=== PATIENT | female | born 1970 | race Caucasian/White ===

== ENCOUNTER 2019-03-08 12:22 | Emergency (ER) | payer OTHER ==
[~2019-03-08] VITALS: Wt 86.0 kg
[2019-03-08 12:25] VITALS: BP 140/75; PULSE 79; RESP 18
[2019-03-08] MEDS ORDERED: ONDANSETRON (ODT) 4 MG TAB ODT STA (12:58)
[2019-03-08] MEDS ORDERED: MECLIZINE 12.5 MG TAB PO ONE (13:00)
[2019-03-08] MEDS ORDERED: MECL-77 PO (13:47)
[2019-03-08] MEDS ORDERED: ONDA8TAB14 PO (13:47)
--- NOTE | 2019-03-08 13:50 | ERD ---
ER Documentation Chief Complaint Chief Complaint nausea and vomiting and intermittent dizziness for the past few days. [place] HPI 48-year-old female presents with nausea and dizziness for the last 3 days. She has recent URIs. Denies chest pain, shortness breath, deficits, visual changes. She has nausea but no vomiting. She denies urinary complaints. History of hypertension and takes medication. ROS All systems reviewed and are negative except as per history of present illness. Medications Home Meds Active Scripts Ondansetron (Ondansetron Odt) 8 Mg Tab.rapdis, 8 MG PO Q6H PRN for NAUSEA AND/OR VOMITING, #6 TAB Prov:LISSETT HAWKINS MD 03/08/19 Meclizine Hcl* (Meclizine Hcl*) 25 Mg Tablet, 25 MG PO Q8H PRN for DIZZINESS, #15 TAB Prov:LISSETT HAWKINS MD 03/08/19 Allergies Allergies: Coded Allergies: No Known Allergy (Unverified , 03/08/19) PMhx/Soc Medical and Surgical Hx: pt denies Surgical Hx History of Surgery: No Anesthesia Reaction: No Hx Cardiac Disorders: Yes (HTN) Hx Alcohol Use: No Hx Substance Use: No Hx Tobacco Use: No Smoking Status: Never smoker FmHx Family History: No diabetes, No coronary disease, No other Physical Exam Vitals Vital Signs Date Temp Pulse Resp B/P (MAP) Pulse Ox O2 O2 Flow FiO2 Time Delivery Rate 03/08/19 98.7 79 18 140/75 98 12:25 (96) Physical Exam Const: No acute distress Head: Atraumatic Eyes: Normal Conjunctiva. Eyes Meenakshi. Negative cover uncover test. No nystagmus. ENT: Normal External Ears, Nose and Mouth. TMs and oropharynx normal. Neck: Full range of motion. No meningismus. Resp: Clear to auscultation bilaterally Cardio: Regular rate and rhythm, no murmurs Abd: Soft, non tender, non distended. Normal bowel sounds Skin: No petechiae or rashes Back: No midline or flank tenderness Ext: No cyanosis, or edema Neur: Awake and alert. Mildly reproducible vertigo to the left. No cerebellar signs. Normal gait. Negative Romberg and no pronator drift. Psych: Normal Mood and Affect Results 24 hrs Laboratory Tests Test 03/08/19 13:12 03/08/19 13:14 Bedside Urine pH (LAB) 7.0 Bedside Urine Protein (LAB) Negative Bedside Urine Glucose (UA) Negative Bedside Urine Ketones (LAB) Negative Bedside Urine Blood 3+ Bedside Urine Nitrite (LAB) Negative Bedside Urine Leukocyte Esterase (L Negative POC Beta HCG, Qualitative NEGATIVE Current Medications Medications Dose Sig/Anand Start Time Status Last (Trade) Ordered Route PRN Stop Time Admin Dose Reason Admin Ondansetron 8 mg ONCE STAT 03/08/19 DC 03/08/19 HCl (Zofran ODT 12:58 13:16 Odt) 03/08/19 12:59 Meclizine 25 mg ONCE ONCE 03/08/19 DC 03/08/19 HCl PO 13:00 13:16 (Antivert) 03/08/19 13:01 Procedures/MDM hCG negative. Urine shows hemoglobin. Patient confirms she is on menses. Patient is given Zofran and Antivert. EKG: Rate/Rhythm: Normal Sinus Rhythm. Rate equals 71 QRS, ST, T-waves: No changes consistent w/ acute ischemia Impression: No evidence of ischemia or arrhythmia Patient presents with reproducible dizziness suggestive of peripheral vertigo. She has no signs of [employer] deficits, central vertigo, chest pain, shortness of breath, additional concerning signs or symptoms. We will treat with Zofran, Antivert, primary care follow-up and return precautions. On serial exam patient is amatory without deficits, well-appearing and feels better. The patient was stable with no new complaints during the ER course. Clinically, there is no current evidence to suggest meningitis, sepsis, acute abdomen, pneumonia, stroke, acute coronary syndrome, pulmonary embolism, aortic dissection or any other emergent condition appearing to require further evaluation or hospitalization. Patient counseled regarding my diagnostic impression and care plan. Prior to discharge all questions answered. Pt agrees with treatment plan and understands strict return precautions. Pt is instructed to follow up with primary care provider within 24-48 hours. Precautionary instructions provided including instructions to return to the ER if not improving or for any worsening or changing symptoms or concerns. Disclaimer: Inadvertent spelling and grammatical errors are likely due to EHR/dictation software use and do not reflect on the overall quality of patient care. Also, please note that the electronic time recorded on this note does not necessarily reflect the actual time of the patient encounter. Departure Diagnosis: Primary Impression: Vertigo Additional Impression: Dizziness Condition: Stable Patient Instructions: Dizziness, Unk Cause, Vertigo, Unspecified Additional Instructions: examines normal. probablamente vertigo. Cheque otro vez con fletcher doctor primario en el proximo asher or regresa para mas o nueva simptomas. LISSETT HAWKINS MD Mar 08, 2019 13:50
== END 2019-03-08 13:55 | disposition home or self-care (01) ==
LOC: FTE 12:22
DX: R42 Dizziness and giddiness (principal); I10 Essential (primary) hypertension
CPT/HCPCS: 81003; 81025; 93005; Z7502; Z7610